=== PATIENT | female | born 1950 | race Caucasian/White ===

== ENCOUNTER 2024-07-26 17:23 | Outpatient (REF) | payer MEDICARE, OTHER, SELFPAY ==
[2024-07-26 18:12] LABS: Anion Gap 10.9; BUN Creatinine Ratio 11.1; Calcium 9.1 mg/dL (8.5-10.1); Chloride 102 mmol/L (98-107); Estimated GFR (African America 43 (>=60); Estimated GFR (Non-African Ame 35 (>=60); Glucose 161 mg/dL (74-106); Potassium 3.9 mmol/L (3.5-5.1); Sodium 140 mmol/L (136-145)
== END 2024-07-26 17:24 | disposition home or self-care (01) ==
LOC: LAB 17:23
PROVIDERS: PCP Family Medicine
DX: I10 Essential (primary) hypertension (principal)
CPT/HCPCS: 36415; 80048